=== PATIENT | female | born 1980 | race Caucasian/White ===

== ENCOUNTER 2019-10-30 15:09 | Emergency (ER) | payer OTHER ==
[~2019-10-30] VITALS: Ht 167.6 cm; Wt 59.0 kg
[2019-10-30 16:05] LABS: ABSOLUTE NEUTROPHILS 3.4 thou/uL (1.4-8.2); BASOPHILS 0.6 % (0.0-2.0); EOSINOPHILS 0.9 % (0.0-3.0); HEMATOCRIT 37.4 % (37.0-47.0); HEMOGLOBIN 12.1 gm/dL (12.0-15.0); LYMPHOCYTES 32.8 % (24.0-44.0); MCH 29.6 pg (26.0-34.0); MCHC 32.3 g/dL (28.0-37.0); MCV 91.6 fL (80.0-100.0); MONOCYTES 6.3 % (1.0-8.0); PLATELET COUNT 262 thou/uL (150-400); POLYS 59.4 % (36.0-66.0); RBC 4.09 mil/uL (4.20-5.00); RDW 14.7 % (10.5-14.5); WBC 5.7 thou/uL (4.0-11.0)
[2019-10-30 16:14] LABS: ANION GAP 13 mmol/L (7-16); BUN 12 mg/dL (7-18); CALCIUM 8.7 mg/dL (8.5-10.1); CHLORIDE 100 mmol/L (98-107); CO2 29 mmol/L (21-32); GLUCOSE 105 mg/dL (74-106); POTASSIUM 3.9 mmol/L (3.5-5.1); SODIUM 142 mmol/L (136-145)
[2019-10-30 16:22] LABS: TROPONIN-I <0.06 ng/mL (<0.06)
[2019-10-30 17:06] LABS: URINE BILIRUBIN NEGATIVE (Negative); URINE BLOOD NEGATIVE (Negative); URINE CLARITY CLEAR; URINE COLOR YELLOW; URINE GLUCOSE-RANDOM* NEGATIVE (Negative); URINE KETONES NEGATIVE (Negative); URINE LEUKOCYTES-REFLEX NEGATIVE (Negative); URINE NITRITE-REFLEX NEGATIVE (Negative); URINE PROTEIN (DIPSTICK) TRACE (Negative); URINE SPECIFIC GRAVITY >= 1.030 (1.005-1.035); URINE UROBILINOGEN 0.2 E.U./dl (0.2-1.0)
[2019-10-30 18:08] VITALS: BP 100/71
--- NOTE | 2019-10-31 07:22 | EKG ---
[facility] [place] [address] ELECTROCARDIOGRAM REPORT Name: HENRY CHEN Room #: DEP [facility]#: [id number] Admission: 10/30/19 Attend Phys: Discharge: 10/30/19 Date of : 82 Report #: [id number] THIS REPORT FOR: cc: Physician not on staff Physician not on staff Gaurang Clark MD 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
== END 2019-10-30 18:15 | disposition home or self-care (01) ==
LOC: ER 15:09
PROVIDERS: Nurse Practitioner
DX: R42 Dizziness and giddiness (principal); R25.1 Tremor, unspecified; R55 Syncope and collapse; F20.9 Schizophrenia, unspecified; F31.9 Bipolar disorder, unspecified; Z98.84 Bariatric surgery status; Z90.711 Acquired absence of uterus with remaining cervical stump; F17.210 Nicotine dependence, cigarettes, uncomplicated